=== PATIENT | female | born 1950 | race Two or more races ===

== ENCOUNTER 2017-07-09 08:23 | Outpatient (CLI) | payer OTHER ==
[~2017-07-09 08:23] MED LIST: CRESTOR10 MG; LOSARTAN-HCTZ1 EAC1; MAXIMUM D310000 UNIT; PRISTIQ ER50 MG
== END 2017-07-09 08:44 | disposition home or self-care (01) ==
LOC: LAB 08:23
DX: E04.1 Nontoxic single thyroid nodule (principal); E21.2 Other hyperparathyroidism; I10 Essential (primary) hypertension; G47.33 Obstructive sleep apnea (adult) (pediatric); E78.2 Mixed hyperlipidemia; D64.89 Other specified anemias; E88.89 Other specified metabolic disorders; D68.8 Other specified coagulation defects; N39.0 Urinary tract infection, site not specified; A49.02 Methicillin resistant Staphylococcus aureus infection, unspecified site

== ENCOUNTER 2017-07-09 08:38 | Outpatient (CLI) | payer OTHER | END 2017-07-09 08:42 | disposition home or self-care (01) | LOC: EKG 08:38 | DX: Z76.89 Persons encountering health services in other specified circumstances (principal) ==

== ENCOUNTER 2017-07-09 09:57 | Outpatient (CLI) | payer OTHER | END 2017-07-09 10:04 | disposition home or self-care (01) | LOC: RAD 09:57 | DX: Z76.89 Persons encountering health services in other specified circumstances (principal) ==

== ENCOUNTER 2017-07-21 09:30 | Inpatient (IN) | payer OTHER ==
[~2017-07-21] VITALS: Ht 157.5 cm; Wt 90.7 kg
[2017-07-21] MEDS ORDERED: PROTONIX20 MG PO (11:33)
== END 2017-07-31 13:26 | DRG 470 ==
LOC: O/R 07-28 05:50 → SURH 07-28 05:50
PROVIDERS: Orthopaedic Surgery
PROC: 0SRD0J9 Replacement of Left Knee Joint with Synthetic Substitute, Cemented, Open Approach (ICD-10-PCS; principal; 2017-07-28 07:00)
DX: M17.12 Unilateral primary osteoarthritis, left knee (principal); D62 Acute posthemorrhagic anemia; I10 Essential (primary) hypertension

== ENCOUNTER → 2017-08-06 | Emergency (ER) | payer OTHER ==
[~2017-08-06] VITALS: Ht 157.5 cm; Wt 90.7 kg
[~2017-08-06] MED LIST changes: +PROTONIX20 MG PO
== END | disposition home or self-care (01) ==
LOC: ER 18:20
DX: M25.462 Effusion, left knee (principal); M17.12 Unilateral primary osteoarthritis, left knee; Z96.652 Presence of left artificial knee joint; D64.89 Other specified anemias; I10 Essential (primary) hypertension; M25.562 Pain in left knee

== ENCOUNTER 2017-08-13 12:04 | Outpatient (CLI) | payer OTHER | END 2017-08-13 12:07 | disposition home or self-care (01) | LOC: LAB 12:04 | DX: D64.89 Other specified anemias (principal); M06.4 Inflammatory polyarthropathy ==

== ENCOUNTER 2017-08-19 11:12 | Outpatient (CLI) | payer OTHER | END 2017-08-19 11:42 | disposition home or self-care (01) | LOC: LAB 11:12 | DX: D64.89 Other specified anemias (principal); M06.4 Inflammatory polyarthropathy ==

== ENCOUNTER 2017-08-19 11:25 | Outpatient (CLI) | payer OTHER | END 2017-08-19 11:45 | disposition home or self-care (01) | LOC: RAD 11:25 | DX: M70.61 Trochanteric bursitis, right hip (principal); M70.62 Trochanteric bursitis, left hip ==

== ENCOUNTER 2020-04-30 09:20 | Outpatient (CLI) | payer OTHER ==
[2020-04-30] MEDS ORDERED: TOPROL XL100 M1 PO (13:22)
[2020-04-30] MEDS ORDERED: PRISTIQ ER50 MG PO (13:22)
[2020-04-30] MEDS ORDERED: PROTONIX40 M1 PO (13:23)
== END 2020-04-30 09:29 | disposition home or self-care (01) ==
LOC: LAB 09:20
PROVIDERS: ATTEND Orthopaedic Surgery
DX: I70.0 Atherosclerosis of aorta (principal); D64.89 Other specified anemias; E88.89 Other specified metabolic disorders; D68.8 Other specified coagulation defects; N39.0 Urinary tract infection, site not specified; Z76.89 Persons encountering health services in other specified circumstances; I49.8 Other specified cardiac arrhythmias; I10 Essential (primary) hypertension

== ENCOUNTER 2020-05-14 05:55 | Day surgery (SDC) | payer OTHER ==
[~2020-05-14 05:55] MED LIST changes: +PRISTIQ ER50 MG PO; +PROTONIX40 M1 PO; +TOPROL XL100 M1 PO
== END 2020-05-14 13:25 | disposition home or self-care (01) ==
LOC: CIR.AMB 05:55
PROVIDERS: ATTEND Orthopaedic Surgery
DX: M19.041 Primary osteoarthritis, right hand (principal); M65.841 Other synovitis and tenosynovitis, right hand; Z20.828 Contact with and (suspected) exposure to other viral communicable diseases

== ENCOUNTER 2020-06-25 11:49 | Outpatient (CLI) | payer OTHER | END 2020-06-25 12:32 | disposition home or self-care (01) | LOC: RAD 11:49 | PROVIDERS: ATTEND Orthopaedic Surgery | DX: M79.644 Pain in right finger(s) (principal); Z96.698 Presence of other orthopedic joint implants ==

== ENCOUNTER 2021-12-02 09:19 | Outpatient (CLI) | payer OTHER | END 2021-12-02 15:00 | disposition home or self-care (01) | LOC: LAB 09:19 | PROVIDERS: ATTEND Orthopaedic Surgery | DX: D64.9 Anemia, unspecified (principal); E88.9 Metabolic disorder, unspecified; D68.8 Other specified coagulation defects; N39.0 Urinary tract infection, site not specified; A49.02 Methicillin resistant Staphylococcus aureus infection, unspecified site ==

== ENCOUNTER 2021-12-03 09:47 | Outpatient (CLI) | payer OTHER | END 2021-12-03 14:49 | disposition home or self-care (01) | LOC: LAB 09:47 | PROVIDERS: ATTEND Orthopaedic Surgery | DX: I10 Essential (primary) hypertension (principal); Z76.89 Persons encountering health services in other specified circumstances ==

== ENCOUNTER 2021-12-13 07:08 | Day surgery (SDC) | payer OTHER ==
[~2021-12-13] VITALS: Ht 157.5 cm; Wt 47.6 kg
== END 2021-12-13 15:20 | disposition home or self-care (01) ==
LOC: CIR.AMB 07:08
PROVIDERS: ATTEND Orthopaedic Surgery
DX: M75.121 Complete rotator cuff tear or rupture of right shoulder, not specified as traumatic (principal); M24.112 Other articular cartilage disorders, left shoulder; M75.22 Bicipital tendinitis, left shoulder; M19.012 Primary osteoarthritis, left shoulder; I10 Essential (primary) hypertension; K21.9 Gastro-esophageal reflux disease without esophagitis; J32.9 Chronic sinusitis, unspecified

== ENCOUNTER 2022-08-13 13:30 | Outpatient (CLI) | payer OTHER | END 2022-08-13 13:32 | disposition home or self-care (01) | LOC: RAD 13:30 | PROVIDERS: ATTEND Orthopaedic Surgery | DX: M25.561 Pain in right knee (principal); M25.562 Pain in left knee; Z96.653 Presence of artificial knee joint, bilateral ==

== ENCOUNTER 2023-07-22 13:54 | Outpatient (CLI) | payer OTHER ==
[2023-07-23] MEDS ORDERED: OMEPRAZOLE MAGN20 MG PO (12:09)
[2023-07-23] MEDS ORDERED: [UNRECOGNIZED DRUG - OTHER] (12:10)
== END 2023-07-22 14:09 | disposition home or self-care (01) ==
LOC: RAD 13:54
PROVIDERS: ATTEND Orthopaedic Surgery
DX: M25.561 Pain in right knee (principal)

== ENCOUNTER → 2023-07-27 | Day surgery (SDC) | payer OTHER ==
[2023-07-23 10:07] LABS: HEMOGLOBIN 13.1 g/dL (12.0-15.00); MEAN CELL VOLUME 99.3 fL (80.00-100.00); MEAN CORPUSCULAR HEMOGLOBIN 33.5 pg (27.00-32.0); MEAN CORPUSCULAR HGB CONC 33.7 g/dl (32.0-36.0); PLATELET COUNT 190 K/uL (150-450); RED BLOOD COUNT 3.93 M/uL (4.00-6.00); RED CELL DISTRIBUTION WIDTH 13.9 % (11.5-14.5)
[2023-07-23 10:20] LABS: PARTIAL THROMBOPLASTIN TIME 28.7 SECONDS (22.0-34.0); PROTHROMBIN TIME 10.5 SECONDS (9.0-11.5)
[2023-07-23 10:24] LABS: URINE APPEARANCE Clear; URINE BILIRRUBIN Negative (NEGATIVE); URINE BLOOD Negative; URINE COLOR Yellow; URINE GLUCOSE Negative (NEGATIVE); URINE LEUKOCYTE Negative; URINE NITRATE Negative; URINE PROTEIN Negative (NEGATIVE)
[2023-07-23 10:29] LABS: URINE BACTERIA 70.5 uL (0.0-1933); URINE EPITHELIAL CELLS 6.1 uL (0.0-38.8); URINE RBC 19.4 uL (0.0-20.8); URINE WBC 3.7 uL (0.0-23.2)
[2023-07-23 10:32] LABS: COL EPI 101 SECONDS (82-175)
[2023-07-23 10:34] LABS: ALBUMIN 3.7 gm/dL (3.4-5.0); BILIRUBIN TOTAL 0.56 mg/dL (0.3-1.2); CALCIUM 9.4 mg/dL (8.5-10.1); CREATININE SERUM 0.64 mg/dL (0.55-1.02); GFR 91.22; GLOBULINA 3.6 G/DL (2.4-3.5); POTASSIUM 3.97 mEq/L (3.5-5.1); TOTAL PROTEIN 7.3 gm/dL (6.4-8.2)
[~2023-07-27] MED LIST changes: +OMEPRAZOLE MAGN20 MG PO; +[UNRECOGNIZED DRUG - OTHER]
== END | disposition home or self-care (01) ==
LOC: CIR.AMB 08:23
PROVIDERS: ATTEND Orthopaedic Surgery
DX: S82.61XA Displaced fracture of lateral malleolus of right fibula, initial encounter for closed fracture (principal)
CPT/HCPCS: 27792; L8699

== ENCOUNTER 2023-08-26 13:48 | Outpatient (CLI) | payer OTHER | END 2023-08-26 13:54 | disposition home or self-care (01) | LOC: RAD 13:48 | PROVIDERS: ATTEND Orthopaedic Surgery | DX: J11.1 Influenza due to unidentified influenza virus with other respiratory manifestations (principal); S82.61XD Displaced fracture of lateral malleolus of right fibula, subsequent encounter for closed fracture with routine healing; S92.151D Displaced avulsion fracture (chip fracture) of right talus, subsequent encounter for fracture with routine healing ==

== ENCOUNTER → 2023-09-01 09:41 | Outpatient (CLI) | payer OTHER ==
[2023-09-01 10:53] LABS: MAGNESIUM 2.4 mg/dL (1.8-2.4)
[2023-09-02 08:10] LABS: ALPHA 1 ANTITRYPSIN 97 mg/dL (101-187); CERULOPLASMIN 20.8 mg/dL (19.0-39.0)
[2023-09-08 10:08] LABS: VITAMIN K 0.74 ng/mL (0.10-2.20)
== END | disposition home or self-care (01) ==
LOC: LAB 09:41
PROVIDERS: ATTEND Orthopaedic Surgery
DX: E55.9 Vitamin D deficiency, unspecified (principal); M85.9 Disorder of bone density and structure, unspecified; E56.1 Deficiency of vitamin K; K76.0 Fatty (change of) liver, not elsewhere classified

== ENCOUNTER 2023-09-29 10:12 | Outpatient (CLI) | payer OTHER | END 2023-09-29 10:17 | disposition home or self-care (01) | LOC: RAD 10:12 | PROVIDERS: ATTEND Orthopaedic Surgery | DX: S82.61XD Displaced fracture of lateral malleolus of right fibula, subsequent encounter for closed fracture with routine healing (principal) ==